=== PATIENT | female | born 1990 | race African-American/Black ===

== ENCOUNTER 2016-11-09 14:00 | Inpatient (IN) | payer OTHER, MEDICAID ==
[~2016-11-09] VITALS: Ht 165.1 cm; Wt 114.3 kg
--- NOTE | ~2016-11-09 | FD ---
ADMIT: 11/09/2016 RM/LOC: 220 [facility] MR#: [id number] 2620 [facility] [address] [place] [phone] WINSOME GUZMAN [address] [id number] Final Diagnosis SEX: F AGE: 26 : 1990 ADMISSION DATE: 11/09/2016 DISCHARGE DATE: 11/11/2016 FINAL DIAGNOSES: 1. Term vaginal delivery of viable female . 2. Premature rupture of membranes. 3. Labor augmentation. Magdalena Steinberg MD/ manjitl JOB #: [id number] CC: Magdalena Steinberg MD, Attending Physician Magdalena Steinberg MD, Family Physician
[2016-11-12] MEDS ORDERED: NIPPLECREAM TP (10:33)
[2016-11-12] MEDS ORDERED: TYLENOL #3 DPS1 TAB PO (10:33)
[2016-11-12] MEDS ORDERED: MOTRIN-DPS800 MG PO (10:33)
[2016-11-12] MEDS ORDERED: PRENATAL VIT1 TAB PO (10:33)
[2016-11-12] MEDS ORDERED: LAN-O-SOOTHE7 GM TP (10:34)
[2016-11-12] MEDS ORDERED: DERMOPLAST SPRA56 GM TP (10:34)
[2016-11-12] MEDS ORDERED: COLACE-DPS100 MG PO (10:35)
--- NOTE | 2016-12-04 08:00 | OR ---
ADMIT: 11/09/2016 RM/LOC: 220 [facility] MR#: [id number] 2620 [facility] [address] [place], [place] [id number] WINSOME GUZMAN [facility] [address] [address] Operative/Delivery Room Report SEX: F AGE: 26 : 1990 SURGERY DATE: 11/09/2016 SURGEON: Magdalena Steinberg MD PREOPERATIVE DIAGNOSES: Premature rupture of membranes at term in 26-year- old, 3, para 2 female. Blood type O positive, antibody negative, rubella immune, hepatitis B negative, group B Streptococcus negative. POSTOPERATIVE DIAGNOSES: 1. Viable female delivered at 2349 hours on 11/09/2016, with scores 7 at 1 minute, 9 at 5 minutes. 2. Meconium-stained fluid. 3. Second-degree laceration. 4. weight 3980 g or 8 pounds 12 ounces. The patient reported that she had rupture of membranes on 11/09/2016, at about 5:00 In the morning. She presented in the mid-afternoon hours and was leaking some fluid, but as a couple hours progressed, she had minimal contractions, we started IV Pitocin. I could also still feel palpable membranes while noting some scant fluid leaking. Pitocin was started and around 2240 hours, she was 7 cm dilated. She delivered at 2349 hours, and I noted meconium-stained fluid at the time of delivery. Baby was born in the JULIETA position with nuchal cord easily reduced. She was vigorous initially and then required an extra stimulation. Cord was clamped after about 90 seconds. Since the baby was requiring stimulation, she was taken to the warmer at that point. On inspection, placenta delivered intact with three-vessel cord. There was a second-degree laceration that was repaired with local anesthetic. There was blood loss of 300 mL. We will use routine cares for mother. I do note that the had to go to the NICU for further monitoring. Magdalena Steinberg MD/ akash JOB #: [id number] CC: Magdalena Steinberg MD, Attending Physician Magdalena Steinberg MD, Family Physician
== END 2016-11-11 14:30 | disposition home or self-care (01) | DRG 775 ==
LOC: BC 14:00 → 2LDRP 14:00
PROVIDERS: ADMIT Family Medicine
DX: O77.0 Labor and delivery complicated by meconium in amniotic fluid (principal); O70.1 Second degree perineal laceration during delivery; Z3A.40 40 weeks gestation of pregnancy; Z37.0 Single live birth

== ENCOUNTER 2016-12-22 05:34 | Emergency (ER) | payer OTHER, MEDICAID ==
[~2016-12-22 05:34] MED LIST: COLACE-DPS100 MG PO; DERMOPLAST SPRA56 GM TP; LAN-O-SOOTHE7 GM TP; MOTRIN-DPS800 MG PO; NIPPLECREAM TP; PRENATAL VIT1 TAB PO; TYLENOL #3 DPS1 TAB PO
--- NOTE | 2016-12-22 19:02 | ER ---
ADMIT: 12/22/2016 RM/LOC: ER [facility] MR#: [id number] 2620 [facility] [address] [place], [place] [phone] WINSOME GUZMAN [address] [address] Emergency Room Report SEX: F AGE: 26 : 1990 DATE: 12/22/2016 The patient is a 26-year-old Somalian one month complaining of biliary colic, treated by Paramedics with fentanyl with relief of pain. Exam is remarkable for nontoxic, afebrile female. No acute distress. Abdomen is obese. Minimally tender epigastrium and right upper quadrant. Normal CBC, lactic acid 1.7, CRP 0.7, lipase 132, alkaline phosphatase slightly elevated at 145, AST 70, normal bilirubin. UA shows 13 WBCs, 3+ leukocyte esterase, no urinary symptoms. Ultrasound does show sludge stones, but no pericolic fluid or thickened gallbladder wall. Negative Jarvis sign. We recommended low-fat low-protein diet, hydrocodone 5/325 as needed. Follow up with Dr. Steinberg and Dr. Langston for consultation. Suspect elective cholecystectomy in the near future. Morris Aragon MD/ akash JOB #: [id number] CC: Morris Aragon MD, Attending Physician Magdalena Steinberg MD, Family Physician MD Magdalena Paul MD
== END 2016-12-22 07:55 | disposition home or self-care (01) ==
LOC: ER 05:34
DX: K80.70 Calculus of gallbladder and bile duct without cholecystitis without obstruction (principal); Z79.899 Other long term (current) drug therapy

== ENCOUNTER 2016-12-26 08:10 | Day surgery (SDC) | payer OTHER, MEDICAID ==
[~2016-12-26] VITALS: Ht 165.1 cm; Wt 102.8 kg
--- NOTE | 2017-01-01 09:10 | OR ---
ADMIT: 12/26/2016 RM/LOC: [facility] MR#: [id number] [address] [facility] [address] [place] [phone] WINSOME GUZMAN [facility] [address] [address] Operative/Delivery Room Report SEX: F AGE: 26 : 1990 SURGERY DATE: 12/26/2016 SURGEON: Pacheco Langston MD PREOPERATIVE DIAGNOSIS: Symptomatic cholelithiasis. POSTOPERATIVE DIAGNOSIS: Symptomatic cholelithiasis. PROCEDURE: Laparoscopic cholecystectomy. NATIONAL RECRUITER: TY Villar, whose assistance was necessary for laparoscopic visualization and tissue retraction. ANESTHESIA: General endotracheal. ESTIMATED BLOOD LOSS: 20 mL. DESCRIPTION OF PROCEDURE: The patient was taken to the operating room and placed supine on the operating room table. General anesthesia was established. The abdomen was prepped and draped in the standard surgical fashion. A 5 mm infraumbilical incision was made in the skin. The fascia was grasped with a Tiffani clamp, and a Veress needle was advanced into the peritoneal cavity. Carbon dioxide was used to insufflate the abdomen to 15 mmHg pressure. The Veress needle was withdrawn, and a 5-mm XL trocar was placed. Laparoscope was advanced and showed intraperitoneal position with no damage to underlying structures. Next, an 11 mm subxiphoid port and 2 right lateral 5 mm ports were placed under visualization. The gallbladder was retracted cephalad. Calot's triangle was dissected. The cystic duct was skeletonized and the view of safety was obtained. The cystic duct was doubly clipped distally, singly clipped proximally, and divided. The cystic artery was skeletonized, doubly clipped proximally, singly clipped distally, and ADMIT: 12/26/2016 RM/LOC: [facility] MR#: [id number] [address] [facility] [address] [place], [place] [phone] WINSOME GUZMAN [address] [facility] [address] [place] [address] Operative/Delivery Room Report SEX: F AGE: 26 : 1990 divided. The gallbladder was excised from the gallbladder fossa with Bovie cautery. It was placed in an EndoCatch bag and removed through the subxiphoid port site. The right upper quadrant was irrigated. There was no evidence of bleeding. No evidence of bile leak, and the clips remained intact on the cystic duct and artery. The ports were removed under visualization without evidence of bleeding. The fascial margin at the 11 mm port site was approximated with the suture passer and an 0 Vicryl tie. The abdomen was allowed to deflate. Skin edges were approximated with 4-0 Monocryl in a subcuticular fashion and Dermabond. Local anesthetic was injected at the incisions. Sponge, needle, and instrument counts were correct at the end of the case. The patient tolerated the procedure well and transferred to the recovery area in stable condition. Pacheco Langston MD/ akash JOB #: [id number] CC: Pacheco Langston, Attending Physician Magdalena Steinberg, Family Physician
== END 2016-12-26 15:39 | disposition home or self-care (01) ==
LOC: SSS 08:10
PROC: 0FT44ZZ Resection of Gallbladder, Percutaneous Endoscopic Approach (ICD-10-PCS; principal; 2016-12-26)
DX: K80.10 Calculus of gallbladder with chronic cholecystitis without obstruction (principal); F41.9 Anxiety disorder, unspecified